=== PATIENT | male | born 1975 | race American Indian/Alaskan Native ===

== ENCOUNTER 2018-02-27 18:36 | Emergency (ER) | payer OTHER, SELFPAY ==
[2018-02-27 18:38] VITALS: BP 117/83; PULSE 68; RESP 20; TEMP 36.7; O2SAT 96; BMI 20.7
[2018-02-27 18:57] VITALS: O2SAT 98
--- NOTE | 2018-02-27 18:57 | EKG12_ITS ---
Test Reason : CP Blood Pressure : / mmHG Vent. Rate : 069 BPM Atrial Rate : 069 BPM P-R Int : 122 ms QRS Dur : 080 ms QT Int : 362 ms P-R-T Axes : 046 061 023 degrees QTc Int : 387 ms Normal sinus rhythm Normal ECG Confirmed by AKIRA LOCKWOOD, JORJE ([id number]), order editor SAMANTHA SCRUGGS ([id number] on 03/02/2018 1:36:15 PM Referred By: HARDY Confirmed By:JORJE CHAMPION MD
--- NOTE | 2018-02-27 19:05 | RAD_ITS ---
STUDY: X-RAY CHEST REASON FOR EXAM: Male, 42 years old. Chest pain TECHNIQUE: Single AP portable view of the chest. COMPARISON: None. FINDINGS: The lungs are clear and expanded. There is no demonstrated pleural abnormality. Normal size heart. Normal mediastinum and idania. Normal visualized pulmonary arteries. Normal visualized aortic arch and descending thoracic aorta. Normal visualized thoracic spine. Normal visualized ribs, clavicles, and shoulders. There is no demonstrated abnormality of the visualized soft tissue structures of the upper abdomen. RAD/Chest 1 View (Portable) IMPRESSION: Normal x-ray examination of the chest. Electronically Signed: Dameon Rojas MD at 20:00 EST , Service support ,
[2018-02-27 19:06] LABS: Absolute Lymphocyte Count 3.21 X10^3/ul (0.83-4.51); Absolute Neutrophil Count 4.2 X10^3/uL (2.0-7.7); Basophil# 0.06 X10^3/uL; Basophil% 0.7 % (0-1); Eosinophil# 0.33 X10^3/uL; Eosinophils% 3.9 % (0-5); Hematocrit 42.8 % (40-54); Hemoglobin 14.1 g/dl (13.0-16.5); Lymphocyte # 3.21 X10^3/ul (4.0); Lymphocyte % 38.4 % (19-41); Mean Corp Hgb Conc 32.9 g/gl (32-36); Mean Corpuscular Volume 84.9 fL (80-94); Mean Platelet Vol. 9.6 fl (6.2-12.0); Monocyte# 0.51 X10^3/uL; Monocyte% 6.1 % (0-10); Neutrophil # 4.23 X10^3/uL (2.7-7.7); Neutrophil % 50.7 % (47-70); Platelet Count 328 K/mm3 (150-450); Red Blood Count 5.04 M/mm3 (4.6-6.2); White Blood Count 8.4 K/mm3 (4.4-11.0)
[2018-02-27 19:09] LABS: POSITIVE COUNT NO; POSITIVE DIFFERENTIAL NO; POSITIVE MORPHOLOGY NO
[2018-02-27 19:19] LABS: Anion Gap 8 (5-15); BUN 7 mg/dL (7-18); BUN/Creat Ratio 7.1 RATIO (10-20); Calcium,Total 9.1 mg/dL (8.5-10.1); Chloride 103 mmol/L (98-107); Creatinine, Serum 0.98 mg/dL (0.70-1.30); EST Glomerular Filtration Rate 89 mL/min (>60); Est Glom Filt Rate - Afr Amer 108 mL/min (>60); Estimated Creatinine Clearance 86.85 ml/min; Glucose 95 mg/dL (74-106); Potassium 3.6 mmol/L (3.5-5.1); Sodium Level 141 mmol/L (136-145)
--- NOTE | 2018-02-27 20:42 | ED.VISSUMM ---
- ER Visit Summary Date of Service: 02/27/18 Chief Complaint: Left-sided chest pain radiating left arm History of Present Illness: The patient is a 42 M who has no past medical history who presents with left-sided chest pain that he localizes over the third and fourth rib mid clavicular line on the left side that started at 2:00 after meeting and drinking T. He had no associated symptoms. He has no risk factors for coronary disease he has no respiratory pulmonary embolus. He states sitting up and movement increases pain. States breathing also causes him pain. There is no history of trauma. He denies prior history of chest pain. He denies leg pain, swelling discoloration. Review of system is positive for chest pain only. Physical Examination: Vital signs are noted and normal. HEENT is unremarkable. Heart is regular without murmur, gallop or rub. S1 and S2 are normal. Lungs are clear to auscultation with good movement of air bilaterally. He has reproducible chest pain. There is no skin lesions noted. There is no evidence of trauma. Abdomen is soft nontender. Neuro exam is nonfocal. Affect is normal. Test Results: EKG obtained per nurse protocol reveals sinus rhythm rate of 69 and normal. Portable chest x-ray per nurse protocol was interpreted by me as negative. Blood work which included a CBC, basic minimal panel troponin which was ordered per nurse protocol was negative. Emergency Department Course and Treatment: Nursing protocol was initiated for chest pain. Based on history and physical this is muscle skeletal pain. 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 She was informed odds ratio is 1-1 rating to left extremity. Would have been concerning of radiated to right shoulder or both shoulders. Treatment Plan: Treat for muscle skeletal chest pain Disposition: Discharge to home with spouse Impression: Left-sided muscle skeletal chest pain This note was generated with [employer] dictation software. It may contain incorrect words, spelling, and punctuation that were not noted in review of the chart prior to signing ED Disposition - Plan for ED Patient: Disposition: Home or Assisted Living Chief Complaint: Chest Pain Instructions: ED Chest Pain NonCardiac Referrals: Kenny Xiong MD [Primary Care Provider] - As Needed
[2018-02-27 20:49] VITALS: BP 114/84; PULSE 70; RESP 18; O2SAT 95
== END 2018-02-27 20:56 | disposition home or self-care (01) ==
PROVIDERS: Emergency Provider Emergency Medicine; Family Provider Family Medicine; PCP Family Medicine
DX: R07.9 Chest pain, unspecified (principal)
CPT/HCPCS: 71045; 80048; 84484; 85025; 93005; 99284; A4216